=== PATIENT | male | born 1950 | race Caucasian/White ===

== ENCOUNTER → 2016-12-08 | Outpatient (CLI) | payer OTHER ==
[~2016-12-08] MED LIST: ASPIRIN81 M1 PO; ATOXIMETIN-B1 CAP PO; ATROVENT H0.017 MG/A INH; B-1100 M1 PO; CRESTOR40 M1 PO; CRESTOR40 MG PO; GABAPENTIN600 MG PO; HYDROCODONE BIT1 T11 PO; ISOSORBIDE MONO60 MG PO; ISOSORBIDE30 MG PO; METOPROLOL SUCC50 M1 PO; METOPROLOL TART50 M1 PO; NITROSTAT0.4 MG SL; OMEPRAZOLE DR20 MG PO; OMEPRAZOLE20 M2 PO; PLAVIX75 M1 PO; PRESERVISION A1 EAC1 PO; PRINIVIL5 MG PO; SYMBICORT1 AER INH; VENTOLIN H0.09 MG/AC INH; VITAMIN D1000 IU PO; VITAMIN D31000 IU PO; ZESTRIL5 MG PO; Zestril,Prinivil5 MG PO; [UNRECOGNIZED DRUG - OTHER] IH; [UNRECOGNIZED DRUG - OTHER] PO
== END | disposition home or self-care (01) ==
LOC: CARD 02:47
DX: R07.89 Other chest pain (principal); R53.81 Other malaise

== ENCOUNTER 2017-04-12 10:04 | Emergency (ER) | payer OTHER ==
[~2017-04-12] VITALS: Wt 56.2 kg
[2017-04-12 10:09] VITALS: BP 147/93
[2017-04-12] MEDS ORDERED: MEDROL DOSEPAK4 MG PO (11:50)
[2017-04-12] MEDS ORDERED: CYCLOBENZAPRINE5 M3 PO (11:50)
== END 2017-04-12 11:58 | disposition home or self-care (01) ==
LOC: ED 10:04
DX: S16.1XXA Strain of muscle, fascia and tendon at neck level, initial encounter (principal); M50.30 Other cervical disc degeneration, unspecified cervical region; I25.10 Atherosclerotic heart disease of native coronary artery without angina pectoris; J44.9 Chronic obstructive pulmonary disease, unspecified; E78.5 Hyperlipidemia, unspecified; I10 Essential (primary) hypertension; I25.2 Old myocardial infarction; F10.10 Alcohol abuse, uncomplicated; F17.200 Nicotine dependence, unspecified, uncomplicated; Z88.8 Allergy status to other drugs, medicaments and biological substances; Z79.82 Long term (current) use of aspirin; Z79.899 Other long term (current) drug therapy; Z98.61 Coronary angioplasty status; Z90.81 Acquired absence of spleen; Z93.0 Tracheostomy status; X58.XXXA Exposure to other specified factors, initial encounter; Y93.89 Activity, other specified; Y92.89 Other specified places as the place of occurrence of the external cause; Y99.8 Other external cause status

== ENCOUNTER → 2019-02-21 | Outpatient (CLI) | payer OTHER ==
[~2019-02-21] MED LIST changes: +CYCLOBENZAPRINE5 M3 PO; +Clopidogrel75 MG PO; +IRON325 M1 PO; +MEDROL DOSEPAK4 MG PO; +NAPROSYN500 MG PO; +PROAIR HFA8.5 GM INH; +SINGULAIR10 M1 PO; +SYMB160 INH; +VITAMIN B-121000 MC2 PO; +VITAMIN D31000 UNI1 PO; +Ventolin 02.5 MG/3 M INH
--- NOTE | ~2019-02-21 | ST ---
[place], [place] EXERCISE STRESS TEST REPORT NAME: PETE ASHBY UNIT #: [id number] ROOM: DOCTOR: ELIS MICHELLE,SARAH BIRTHDATE: [birth year] DOS: 02/21/2019 LEXISCAN PORTION OF THE LEXISCAN CARDIOLITE Baseline cardiogram, sinus rhythm, 0.4 mg Lexiscan, duration of 10 seconds. The patient did have shortness of breath, no new EKG changes. Blood pressure and heart rate response was normal. Nuclear images will be reported separately. SARAH GILLIS MD CM:STRESS:EXERCISE STRESS TEST REPORT [id number] SARAH GILLIS MD
--- NOTE | 2019-02-21 07:05 | NUR ---
INFORMED CONSENT SIGNED FOR LEXISCAN STRESS TEST WITH DR. GILLIS. RESTING EKG SINUS BRADYCARDIA, HR 56, BP 118/60. PULSE OX 95% AND LUNGS CLEAR BILATERALLY. COMPLETED ONE MINUTE OF LEXISCAN PROTOCOL RECEIVING LEXISCAN 0.4MG OVER 10 SECONDS. NO ARRHYTHMIAS OR ST CHANGE NOTED. PT C/O SOB. LAST RECOVERY HR 82, BP 108/54. WAITING NUCLEAR SCANNING IN STABLE CONDITION.
== END | disposition home or self-care (01) ==
LOC: CARD 01:30
DX: E78.5 Hyperlipidemia, unspecified (principal); I10 Essential (primary) hypertension; I20.0 Unstable angina; R53.81 Other malaise

== ENCOUNTER → 2020-12-30 | Outpatient (CLI) | payer OTHER | END | disposition home or self-care (01) | LOC: CT 12-25 11:00 | PROVIDERS: ATTEND Nurse Practitioner Family | DX: J43.9 Emphysema, unspecified (principal); R91.8 Other nonspecific abnormal finding of lung field; I25.10 Atherosclerotic heart disease of native coronary artery without angina pectoris; J98.4 Other disorders of lung ==

== ENCOUNTER → 2021-04-01 | Outpatient (CLI) | payer OTHER | END | disposition home or self-care (01) | LOC: RAD/SH 03-11 10:30 | PROVIDERS: ATTEND Nurse Practitioner Adult Health | DX: R13.10 Dysphagia, unspecified (principal) ==

== ENCOUNTER 2021-09-19 07:43 | Emergency (ER) | payer OTHER ==
[~2021-09-19] VITALS: Ht 182.8 cm; Wt 63.0 kg
[2021-09-19 07:51] VITALS: BP 114/66
[2021-09-19 08:05] LABS: BASO # 0.1 10*3/uL (0.0-0.1); BASO % 1.1 % (0.0-1.0); EOS # 0.9 10*3/uL (0.0-0.4); EOS % 10.4 % (1.0-4.0); HEMATOCRIT 31.2 % (42.0-52.0); LYMPH # 3.4 10*3/uL (1.3-4.4); LYMPH % 41.3 % (27.0-41.0); MEAN CELL VOLUME 95.7 fl (80.0-94.0); MEAN CORPUSCULAR HGB 32.2 pg (27.0-31.0); MEAN CORPUSCULAR HGB CONC 33.7 g/dl (33.0-37.0); MEAN PLATELET VOLUME 8.5 fl (9.6-12.3); MONO # 0.9 10*3/uL (0.1-1.0); MONO % 10.9 % (3.0-9.0); NEUT # 2.9 10*3/uL (2.3-7.9); NEUT % 36.1 % (47.0-73.0); PLATELET COUNT AUTOMATED 345 10*3/uL (130-400); RED BLOOD COUNT 3.26 10*6/uL (4.50-5.90); RED CELL DISTRI WIDTH 14.5 % (0-14.5); WHITE BLOOD COUNT 8.2 10*3/uL (4.8-10.8)
[2021-09-19 08:19] LABS: ACT PARTIAL THROMBO TIME 26.8 SECONDS (20.0-32.1); INTERNATIONAL NORM RATIO 0.9 (2.0-3.5)
[2021-09-19 08:23] LABS: CREATININE 1.62 mg/dL (0.70-1.30); POTASSIUM 4.4 mmol/L (3.5-5.1); TOTAL PROTEIN 7.1 gm/dL (6.4-8.2)
[2021-09-19 09:31] LABS: BILIRUBIN Negative (Negative); BLOOD Negative (Negative); CLARITY Clear (Clear); COLOR Yellow (Yellow); GLUCOSE Negative (Negative); KETONE Negative (Negative); LEUKO ESTERASE Negative (Negative); NITRITE Negative (Negative); UROBILINOGEN 0.2 E.U./dl (0.0-1.0)
[2021-09-19 10:20] LABS: EPITHELIAL CELLS 0-2; RBC 0-2 rbc/hpf (0-2); WBC 0-2 wbc/hpf (0-5)
[2021-09-19] MEDS ORDERED: PANTOPRAZOLE SO40 MG PO (10:38)
[2021-09-19] MEDS ORDERED: LYRICA75 M1 PO (10:39)
[2021-09-19] MEDS ORDERED: VARENICLINE TART1 MG PO (10:40)
[2021-09-19] MEDS ORDERED: SPIRIVA RESPIMAT4 GM INH (10:42)
[2021-09-19] MEDS ORDERED: MAGNESIUM OXID420 M1 PO (10:43)
== END 2021-09-19 11:21 | disposition home or self-care (01) ==
LOC: ED 07:43
PROVIDERS: Emergency Medicine
DX: R10.30 Lower abdominal pain, unspecified (principal); I25.10 Atherosclerotic heart disease of native coronary artery without angina pectoris; I10 Essential (primary) hypertension; I25.2 Old myocardial infarction; J44.9 Chronic obstructive pulmonary disease, unspecified; Z88.8 Allergy status to other drugs, medicaments and biological substances; Z79.899 Other long term (current) drug therapy; Z79.82 Long term (current) use of aspirin; Z98.890 Other specified postprocedural states; Z87.891 Personal history of nicotine dependence

== ENCOUNTER → 2021-11-25 | Outpatient (CLI) | payer OTHER ==
[~2021-11-25] MED LIST changes: +LYRICA75 M1 PO; +MAGNESIUM OXID420 M1 PO; +PANTOPRAZOLE SO40 MG PO; +SPIRIVA RESPIMAT4 GM INH; +VARENICLINE TART1 MG PO
== END | disposition home or self-care (01) ==
LOC: CARD 02:44
PROVIDERS: ATTEND Internal Medicine Cardiovascular Disease
DX: I07.1 Rheumatic tricuspid insufficiency (principal)